=== PATIENT | male | born 1990 | race African-American/Black ===

== ENCOUNTER 2022-07-14 15:43 | Emergency (ER) | payer MEDICARE, MEDICAID ==
[2022-07-14] MEDS ORDERED: Acetaminophen 500 MG TAB ONE (15:54)
[2022-07-14] MEDS ORDERED: Ibuprofen 800 MG TAB ONE (16:34)
== END 2022-07-14 18:46 | disposition home or self-care (01) ==
LOC: BURERS 15:43
DX: B34.9 Viral infection, unspecified (principal); I10 Essential (primary) hypertension; E11.9 Type 2 diabetes mellitus without complications; Z79.84 Long term (current) use of oral hypoglycemic drugs
CPT/HCPCS: 87804; 87807; 99284